=== PATIENT | female | born 1945 | race Caucasian/White ===

== ENCOUNTER 2020-08-12 06:55 | Day surgery (SDC) | payer MEDICARE, BC ==
[~2020-08-12] VITALS: Ht 162.6 cm; Wt 86.4 kg
[~2020-08-12 06:55] MED LIST: ACIPHEX20 MG PO; ATENOLOL50 MG PO; B COMPLEX1 EACH PO; CALTRATE 600 +1 EAC1; CALTRATE 600 +1 EAC1 PO; CENTRUM SILVER1 EAC3; CENTRUM SILVER1 EAC3 PO; CLARITIN10 M2 PO; COZAAR100 MG PO; EQL FISH OIL 11 EAC1 PO; ESTER-C 500 MG1 EACH PO; FLONASE ALLERG9.9 ML NAS; HYDROCHLOROTH12.5 MG PO; HYDROCODON-ACE1 EA10 PO; LEVOTHYROXINE112 MC1; LEXAPRO10 MG; LEXAPRO10 MG PO; LIPITOR20 MG PO; LIPITOR40 MG; OCUVITE ADULT1 EAC1; OSTEO BI-FLEX1 EAC2 PO; SYNTHROID112 MCG PO; TURMERIC500 M2; ULTRA-LIGHT RO1 EACH MISC; VITAMIN D31000 UNI1 PO
--- NOTE | 2020-08-12 07:45 | NUR ---
Rapid sample obtained, no complications , sent to [facility]
[2020-08-12] MEDS ORDERED: ASPIRIN325 MG PO (11:39)
[2020-08-12] MEDS ORDERED: HYDROCODON-ACE1 EA11 PO (11:39)
--- NOTE | 2020-08-12 11:57 | NUR ---
08/12/20 Vikas7 Irma Hamilton 1035- PT TO PACU IN SUPINE POSITION. EYES CLOSED SLEEPING WITH ORAL AIRWAY IN PLACE. BREATHING EASY AND UNLABORED. DOES NOT RESPOND TO TACTILE AND VERBAL STIMULI. SPO2>95% ON 6L O2 VIA SIMPLE MASK. 1042- PT CONTINUES TO SLEEP WITH ORAL AIRWAY IN PLACE. BREATHING EASY AND UNLABORED. SPO2 .95% ON 6 L O2 VIA SIMPLE MASK. MD AT BEDSIDE ADJUSTING BOOT. 1055- PT OPENS EYES AND FOLLOWS COMMENDS. ORAL AIRWAY REMOVED. O2 TITRATED DOWN TO ROOM AIR. PT ENCOURAGED TO TAKE DEEP BREATHS AND COUGH. PT DENIES PAIN AND NAUSEA. VSS.
--- NOTE | 2020-08-12 13:00 | NUR ---
PT ARRIVES BACK TO DS RM 5 AWAKE AND ALERT. PT IS ON 2L NC, SATS 100%. PT TOLERATES WATER WITH NO C\O NAUSEA. PT STATES 0/10 PAIN AND CANNOT MOVE RIGHT TOES WHEN ASKED, STATES SECOND TOE IS TINGLING. CALL LIGHT WITHIN REACH, DC CRITERIA EXPLAINED TO PT. PT PROVIDED PUDDING.
--- NOTE | 2020-08-12 13:55 | NUR ---
PT RESTING IN BED UPRIGHT READING BOOK. DENIES URGE TO VOID AT THIS TIME. STATES NO PAIN IN RLE AND IS UNABLE TO MOVE TOES. PT TOLERATES PO WELL WITH NO C\O NAUSEA. CALL LIGHT WITHIN REACH, ENCOURAGED TO USE WITH ANY NEEDS.
--- NOTE | 2020-08-12 15:35 | NUR ---
LE 1450: PATIENT PUSHES HER CALL LIGHT AND ASKS TO USE THE BATHROOM. PATIENT TRANSFERS HERSELF USING HER LEFT FOOT ONLY TO THE WHEELCHAIR AND THEN TO THE TOILET AND SHE DOES REMARKABLY WELL WITH THAT. PATIENT TRANSFERS HERSELF BACK TO THE WHEELCHAIR AND I ASSIST HER WITH GETTING DRESSED. DISCHARGE INSTRUCTIONS ARE GIVEN AND PATIENT VERBALIZES UNDERSTANDING. PATIENT TRANSFERS HERSELF TO PERSONAL VEHICLE AND DOES WELL WITH THAT. ICE BAG REFILLED PRIOR TO HER DISCHARGE.
--- NOTE | 2020-08-14 07:04 | OR ---
[facility] [address] [place], [place] [address] Signed DATE OF OPERATION: 08/12/2020 SURGEON: Rhonda Jamil MD PREOPERATIVE DIAGNOSIS: Right bimalleolar ankle fracture. POSTOPERATIVE DIAGNOSIS: Right bimalleolar ankle fracture. PROCEDURE PERFORMED: Open reduction and internal fixation of right bimalleolar ankle. FINISHER FINE DIAMOND DIES: None. ANESTHESIA: General. TOURNIQUET TIME: 33 minute. IMPLANTS: 7-hole 1/3 tubular plate with 8 screws, two screws medially. BRIEF HISTORY: Evelyn is a 75-year-old female, who suffered a ground level fall fracturing her ankle. She had extensive swelling with the swelling to go down prior to surgery. Risks and benefits of operative treatment were discussed with her and she elected to proceed. DESCRIPTION OF PROCEDURE: Once consent was obtained, she was taken to the operating room. After adequate anesthesia, she was placed on the operative table, all downside pressure points were well padded. The right leg was placed in well-padded proximal thigh tourniquet and prepped and draped in a standard sterile fashion. The leg was exsanguinated using Esmarch bandage. Tourniquet was inflated to 250 mmHg. Standard lateral approach was taken to the fibula, taken through skin and subcutaneous tissue, and directly down onto the bone. Periosteum was elevated anteriorly and posteriorly. The fracture was distracted and cleaned of debris, and then reduced and clamped. A single screw was placed anterior to posterior in standard AO lag technique. The clamp was removed. A Electronically Signed By: RHONDA JAMIL MD 08/14/20 0704 PATIENT NAME: EVELYN ESQUEDA OPERATIVE REPORT DATE OF : 41 REPORT #: [id number] PHYSICIAN: RHONDA JAMIL MD PCP: NOEMÍ COX MD REPORT IS CONFIDENTIAL AND NOT TO BE RELEASED WITHOUT AUTHORIZATION [facility] [address] [place], [place] [address] Signed 7-hole plate was fashioned to fit the lateral malleolus and was held with the central screw, this was checked using image intensifier. The tip of the plate was then bent a little bit. Once this was accomplished, the three screws proximally were drilled and appropriate length screws were placed. Three locking screws were placed distally. The wound was copiously irrigated with antibiotic solution, closed with 2-0 Monocryl and deisy for the skin. The attention was then turned to the medial side. longitudinal incision was centered over the medial malleolus, taken through skin and subcutaneous tissue. The fracture was readily identified, again distracted and free, and cleared of debris and periosteum. The fracture was then reduced and held with a clamp. A K-wire was placed posteriorly. We then placed two screws from the medial malleolus into the body of the tibia, both 45 mm screws. The K-wire was removed. Final radiographs showed good placement of the hardware. Fracture reduction was anatomic. The wound was copiously irrigated and closed in a similar manner. Both wounds were then dressed with Acticoat 7 dressing, 4 x 8, and an Joby wrap. She was placed back into a fracture boot. She tolerated the procedure well. All sponge, needle, and instrument counts were correct. Rhonda Jamil MD BA/MODL /[id number] Copies: ~ Electronically Signed By: RHONDA JAMIL MD 08/14/20 0704 PATIENT NAME: EVELYN ESQUEDA OPERATIVE REPORT DATE OF : 41 REPORT #: [id number] PHYSICIAN: RHONDA JAMIL MD PCP: NOEMÍ COX MD REPORT IS CONFIDENTIAL AND NOT TO BE RELEASED WITHOUT AUTHORIZATION
== END 2020-08-12 15:05 | disposition home or self-care (01) ==
LOC: DS 06:55
PROVIDERS: ATTEND Specialist
PROC: 0QSG04Z Reposition Right Tibia with Internal Fixation Device, Open Approach (ICD-10-PCS; 2020-08-12)
PROC: 0QSJ04Z Reposition Right Fibula with Internal Fixation Device, Open Approach (ICD-10-PCS; principal; 2020-08-12 08:45)
DX: S82.844A Nondisplaced bimalleolar fracture of right lower leg, initial encounter for closed fracture (principal); W18.39XA Other fall on same level, initial encounter; Y93.9 Activity, unspecified; Y92.89 Other specified places as the place of occurrence of the external cause; Y99.9 Unspecified external cause status
CPT/HCPCS: 01480; 64445; 64447; 73600; 76942; C1713; C9803; J0690; J1100; J1885; J2001; J2250; J2704; J2795; J7121; U0003

== ENCOUNTER 2024-02-01 11:51 | Day surgery (SDC) | payer MEDICARE, BC ==
[~2024-02-01] VITALS: Ht 162.6 cm; Wt 88.0 kg
[~2024-02-01 11:51] MED LIST changes: -ACIPHEX20 MG PO; -ATENOLOL50 MG PO; -B COMPLEX1 EACH PO; -CALTRATE 600 +1 EAC1; -CALTRATE 600 +1 EAC1 PO; +CEFAZOLIN SODIUM 2 GM/20 ML SYR IV SCH; -CENTRUM SILVER1 EAC3; -CENTRUM SILVER1 EAC3 PO; -CLARITIN10 M2 PO; -COZAAR100 MG PO; -EQL FISH OIL 11 EAC1 PO; -ESTER-C 500 MG1 EACH PO; -FLONASE ALLERG9.9 ML NAS; -HYDROCHLOROTH12.5 MG PO; -HYDROCODON-ACE1 EA10 PO; +IBLOOD GLUCOSE TEST STRIP 1 EA TEST VI PRN; +LACTATED RINGER'S 1,000 ML IV SCH; -LEVOTHYROXINE112 MC1; -LEXAPRO10 MG; -LEXAPRO10 MG PO; +LIDOCAINE HCL 1% 5 ML SDV INJ ONE; +LIDOCAINE HCL 4% 50 ML BTL TOP SCH; -LIPITOR20 MG PO; -LIPITOR40 MG; -OCUVITE ADULT1 EAC1; -OSTEO BI-FLEX1 EAC2 PO; -SYNTHROID112 MCG PO; -TURMERIC500 M2; -ULTRA-LIGHT RO1 EACH MISC; -VITAMIN D31000 UNI1 PO
[2024-02-01] MEDS ORDERED: fentaNYL citrate 100 MCG/2 ML VIAL ONE (12:27)
[2024-02-01] MEDS ORDERED: MIDAZOLAM HCL 5 MG/5 ML VIAL ONE (12:27)
[2024-02-01 13:53] VITALS: BP 163/57
--- NOTE | 2024-02-01 16:59 | NUR ---
02/01/24 MandyJaja RichardMarija Polo 1259- PT PRESENTED TO PACU, LEFT LATERAL SEMI ROWE POSITION, AWAKE BUT DROWSY. PT STATES "YOU AREN'T DONE YET ARE YOU?". PT DENIES PAIN AND NAUSEA. LR INFUSING TO RH IV. O2 AT 3L PER NC, BREATHING EVEN AND NON LABORED. PT BELCHING, ENCOURAGED TO CONTINUE. ALL MONITORS IN PLACE. ABD SOFT, NON DISTENDED. 1306- PT MOVED TO ROOM AIR, RESTING INTERMITTENTLY BUT WAKES EASILY TO VERBAL STIMULI. 1322- PT SITTING UP IN BED, ICE WATER PROVIDED. TOLERATING WELL. 1330- PT UP TO SIDE OF BED, NO DIZZINESS OR NAUSEA. PT TO GET DRESSED. SISTER CALLED FOR RIDE HOME. 1340- PT DRESSED AND READY TO GO. STEADY ON FEET, TRANSFERRED TO WHEEL CHAIR WITHOUT DIFFICULTY. SALINE LOCK REMOVED, TIP INTACT, DRESSING APPLIED. PT VERBALIZED UNDERSTANDING OF INSTRUCTIONS. PT TAKEN OUT TO FAMILY CAR WITH ALL BELONGINGS.
--- NOTE | 2024-02-05 13:20 | OR ---
[facility] [address] [place], [place] [address] Signed DATE OF OPERATION: 02/01/2024 SURGEON: Nicci Khan MD PREOPERATIVE DIAGNOSES: 1. History of hiatal hernia and previous esophagitis. No current symptoms. 2. History of prior esophageal dilation (Dr. Fredrick Matson, [place], [place]). 3. 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 POSTOPERATIVE DIAGNOSES: 1. No evidence of stricture or varices. No evidence of Griggs's epithelium. 2. Hiatal hernia. 3. Proximal gastric polyps. PROCEDURE: Esophagogastroduodenoscopy with biopsy and excision of gastric polyp x1. ANESTHESIA: Intravenous sedation; fentanyl 50 mcg and Versed 1.5 mg. INDICATION: This 78-year-old white woman is a patient of Dr. Barnett and based on office notes is said to have hepatitis. The patient seems unaware of such a diagnosis. She has no history of chronic alcoholism, hepatitis, or other problem. She does have history of hiatal hernia with distal esophageal stricture requiring dilation by Dr. Fredrick Matson in [place] in the past. She currently is free of dysphagia or other similar symptoms. She is admitted at this time to undergo upper endoscopy. She understands the risk of bleeding, infection, and perforation. FINDINGS: There is no evidence of Griggs's epithelium and certainly no stricture. There were also no varices of the esophagus. She did have hiatal hernia on retroflexed view and some proximal gastric polyps, likely related to chronic PPI use. The antrum and duodenal areas were normal. CLOtest was negative. DESCRIPTION OF PROCEDURE: The patient was brought to the endoscopy suite and given topical lidocaine hypopharyngeal anesthesia. She was given intravenous sedation to the point of slurred speech and nystagmus. Preoperative antibiotic Ancef had been given based on joint replacement therapy. A bite block was placed. Electronically Signed By: NICCI KHAN MD 02/05/24 1320 PATIENT NAME: LAUREN ESQUEDA OPERATIVE REPORT DATE OF : 41 REPORT #: [id number] PHYSICIAN: NICCI KHAN MD PCP: IMELDA BARNETT MD REPORT IS CONFIDENTIAL AND NOT TO BE RELEASED WITHOUT AUTHORIZATION [facility] [address] [place], [place] [address] Signed An Olympus video upper endoscope was passed in the hypopharynx. The vocal cords were visualized and found to be normal. There were no vallecular varices either. The scope was advanced to the esophagus, throughout its length it was normal. Scope was advanced to the stomach which was insufflated with air. Rugal folds were normal as was the antral mucosa overall. The pylorus was normal. Scope was passed through into the duodenum, which was normal. Biopsies were taken of the duodenum to assess for celiac disease. The scope was withdrawn and biopsies taken of the antrum and more proximal stomach for LANA and pathologic testing. Retroflexed view confirmed a moderate-sized hiatal hernia. She did have some proximal gastric polyps, one of which was excised. The scope was withdrawn to the distal esophagus and careful inspection showed no evidence of varices. No stricture. No neoplasm. No Griggs's epithelium. Biopsies were obtained there and also in the mid esophagus which was also clinically normal. Further withdrawal showed no other findings. Scope was removed and the patient was taken to the recovery room in good condition. CONCLUDING DIAGNOSIS: Hiatal hernia without evidence of stricture, scar, Griggs's epithelium or varices. PLAN: Would recommend continued use of AcipHex, PPI medication as it does control her symptoms and she does have history of reflux related stricture from the distant past. She will return to the ongoing care of Dr. Barnett. MD JULES Izaguirre/MODL /[id number] cc: Imelda Barnett MD Copies: ~ Electronically Signed By: NICCI KHAN MD 02/05/24 1320 PATIENT NAME: LAUREN ESQUEDA OPERATIVE REPORT DATE OF : 41 REPORT #: [id number] PHYSICIAN: NICCI KHAN MD PCP: IMELDA BARNETT MD REPORT IS CONFIDENTIAL AND NOT TO BE RELEASED WITHOUT AUTHORIZATION
--- NOTE | 2024-02-06 06:02 | PATH ---
[facility] [address] [facility] [place] [place] [address] Signed SPECIMEN(S): A DUODENAL BIOPSY SPECIMEN(S): B ANTRUM/PYLORUS BIOPSY SPECIMEN(S): C GASTRIC POLYP BIOPSY SPECIMEN(S): D DISTAL ESOPHAGEAL BIOPSY SPECIMEN(S): E MID ESOPHAGEAL BIOPSY SPECIMEN SOURCE: A. DUODENAL BIOPSY B. ANTRUM/PYLORUS BIOPSY C. GASTRIC POLYP BIOPSY D. DISTAL ESOPHAGEAL BIOPSY E. MID ESOPHAGEAL BIOPSY CLINICAL HISTORY: Cirrhosis of liver, reflux, dysphagia FINAL PATHOLOGIC DIAGNOSIS: A. Duodenum, biopsies: - Mild chronic duodenitis with Kevin's gland hyperplasia, negative for active inflammation or significant villous blunting. B. Antrum/pylorus, biopsies: - Mild chronic gastritis with vascular congestion, negative for active inflammation. - No H. pylori bacteria are detected by HE stain. C. Gastric polyp, biopsies: - Fundic gland polyp, benign. D. Distal esophagus, biopsies: - Benign squamous esophageal mucosa with vascular congestion. - Negative for esophagitis, increased eosinophils or Griggs's metaplasia. E. Mid esophagus, biopsies: - Benign squamous esophageal mucosa, negative for esophagitis or increased eosinophils. AMB MICROSCOPIC EXAMINATION: Histologic sections of all submitted blocks are examined by light microscopy. These findings, together with the gross examination, support the pathologic diagnosis. GROSS DESCRIPTION: A. The specimen, labeled and designated "Carlton, duodenum biopsy," is received PATIENT NAME: CARLTONLAUREN JOSE PATHOLOGY DATE OF : 41 REPORT #: [id number] PHYSICIAN: ALEK PATHOLOGY PCP: NOEMÍ COX MD REPORT IS CONFIDENTIAL AND NOT TO BE RELEASED WITHOUT AUTHORIZATION [facility] [address] [place], [place] [address] Signed in formalin and consists of two abraham soft tissue fragments, ranging from 0.2 cm. Entirely submitted in (A1). B. The specimen, labeled and designated "Cartlon, antrum biopsy," is received in formalin and consists of two abraham soft tissue fragments, ranging from 0.2 to 0.3 cm. Entirely submitted in (B1). C. The specimen, labeled and designated "Carlton, gastric polyp," is received in formalin and consists of two abraham soft tissue fragments, ranging from 0.2 cm. Entirely submitted in (C1). D. The specimen, labeled and designated "Carlton, distal esophagus biopsy," is received in formalin and consists of two abraham soft tissue fragments, ranging from 0.2 cm. Entirely submitted in (D1). E. The specimen, labeled and designated "Carlton, mid esophagus biopsy," is received in formalin and consists of two abraham soft tissue fragments, ranging from 0.1 cm. Entirely submitted in (E1). JS (under the direct supervision of a pathologist) The Gross Description was prepared using a voice recognition system. The report was reviewed for accuracy; however, sound-alike word errors, addition and/or deletions may occur. If there is any question about this report, please contact Client Services. ADDITIONAL NOTES: Immunohistochemical and/or in situ hybridization studies if performed in this case included appropriate positive controls that reacted as expected. This test was developed and its performance characteristics determined by [facility]. It has not been cleared or approved by the U.S. Food and Drug Administration. The FDA has determined that such clearance or approval is not necessary. This test is used for clinical purposes. It should not be regarded as investigational or for research. [facility] is certified under the Clinical Laboratory Improvement Amendments of 1988 (CLIA) as qualified to perform high complexity clinical laboratory testing. PERFORMING LABORATORY: Technical component was performed by [facility], [address] [place] [address] (CLIA# [id number]). Professional interpretation was performed by [facility] [address] [id number] Diagnostician: Florence Hooks MD Pathologist PATIENT NAME: CARLTONLAUREN PATHOLOGY DATE OF : 41 REPORT #: [id number] PHYSICIAN: ALEK JAIME PCP: NOEMÍ COX MD REPORT IS CONFIDENTIAL AND NOT TO BE RELEASED WITHOUT AUTHORIZATION [facility] [address] [place] [address] [place], [place] [address] Signed Electronically Signed 02/05/2024 Copies: ~ PATIENT NAME: LAUREN ESQUEDA PATHOLOGY DATE OF : 41 REPORT #: [id number] PHYSICIAN: ALEK JAIME PCP: NOEMÍ COX MD REPORT IS CONFIDENTIAL AND NOT TO BE RELEASED WITHOUT AUTHORIZATION
== END 2024-02-01 13:40 | disposition home or self-care (01) ==
LOC: DS 11:51
PROVIDERS: ATTEND Surgery
PROC: 0DB98ZZ Excision of Duodenum, Via Natural or Artificial Opening Endoscopic (ICD-10-PCS; principal; 2024-02-01)
PROC: 0DB68ZZ Excision of Stomach, Via Natural or Artificial Opening Endoscopic (ICD-10-PCS; 2024-02-01)
PROC: 0DB58ZZ Excision of Esophagus, Via Natural or Artificial Opening Endoscopic (ICD-10-PCS; 2024-02-01)
DX: K31.7 Polyp of stomach and duodenum (principal); K29.80 Duodenitis without bleeding; K31.89 Other diseases of stomach and duodenum; K29.50 Unspecified chronic gastritis without bleeding; K22.89 Other specified disease of esophagus; K44.9 Diaphragmatic hernia without obstruction or gangrene; K74.60 Unspecified cirrhosis of liver; K21.9 Gastro-esophageal reflux disease without esophagitis; I10 Essential (primary) hypertension; E03.9 Hypothyroidism, unspecified; Z79.890 Hormone replacement therapy; Z79.899 Other long term (current) drug therapy
CPT/HCPCS: 88305; 99153; G0500; J0690; J2250; J3010; J7121